=== PATIENT | female | born 1990 | race Caucasian/White ===

== ENCOUNTER 2016-12-29 09:58 | Inpatient (IN) | payer OTHER ==
[~2016-12-29] VITALS: Ht 165.1 cm; Wt 109.0 kg
[~2016-12-29 09:58] MED LIST: BUDE3CAP PO; MONOTAB PO; VEDO1INJ; ZOFR4TAB3 SL
[2017-01-06] MEDS ORDERED: MONOTAB PO (11:07)
[2017-01-06] MEDS ORDERED: VEDO1INJ IV (11:07)
[2017-01-06 11:10] VITALS: BP 140/86; PULSE 101; RESP 16; TEMP 99.3; O2SAT 100
[2017-01-06] MEDS ORDERED: ALVIMOPAN 12 MG CAPSULE ONE (11:22)
[2017-01-06] MEDS ORDERED: ALVIMOPAN 12 MG CAPSULE - On Call PO SCH (12:00)
[2017-01-06] MEDS ORDERED: SODIUM CHLORID 0.9% 500 ML IV PRN (12:00)
[2017-01-06] MEDS ORDERED: DEXT 5%-NACL 0.9% 1000 ML INJ 1,000 ML IV SCH (12:00)
[2017-01-06] MEDS ORDERED: LACTATED RINGER'S 1000 ML IV PRN (12:00)
[2017-01-06] MEDS ORDERED: POVIDONE IODINE 5% (ANTISEPSIS KIT) 4 APPLICATIONS EACH NARE PRN (12:00)
[2017-01-06] MEDS ORDERED: METOPROLOL TARTRATE 25 MG TAB PO PRN (12:00)
[2017-01-06] MEDS ORDERED: CHLORHEXIDINE GLUCONATE 2 % 1 PACK (2 CLOTHS) TOPICAL PRN (12:00)
[2017-01-06] MEDS ORDERED: INSULIN HUMAN REGULAR 1,000 UNITS/10 ML VIAL SQ PRN (12:00)
[2017-01-06] MEDS: ceFAZolin 1,000 MG/NS 100 ML IV SCH ×4 (12:50)
--- NOTE | 2017-01-06 12:50 | PD.HP.UP ---
H&P Update Note The Pre-Admit History and Physical Examination regarding the above named patient was reviewed (including, but not limited to, vital signs, heart, lungs, co-morbid conditions), and upon re-examination it is noted that: the patient's condition has not significantly changed since the last examination. Karlos Andersen MD Jan 06, 2017 12:50
[2017-01-06] MEDS ORDERED: ACETAMINOPHEN 1000 MG/100 ML VIAL IV ONE (12:51)
[2017-01-06] MEDS: METRONIDAZOLE 500 MG/100 ML ISONTONIC SOLN IV SCH ×2 (12:52)
[2017-01-06] MEDS ORDERED: MIDAZOLAM HCL 2 MG/2 ML VIAL ONE (12:54)
[2017-01-06] MEDS ORDERED: FAMOTIDINE 20 MG/2 ML VIAL ONE (12:54)
[2017-01-06] MEDS ORDERED: PROPOFOL 200 MG/20 ML AMP IV ONE (14:24)
[2017-01-06] MEDS ORDERED: LACTATED RINGER'S 1000 ML INJ 1,000 ML IV ONE (14:25)
[2017-01-06] MEDS ORDERED: NORMOSOL R INJ 3,000 ML IV ONE (14:25)
[2017-01-06] MEDS ORDERED: NEOSTIGMINE 3 MG/3 ML SYR IV ONE (14:25)
[2017-01-06] MEDS ORDERED: ONDANSETRON HCL 4 MG/2 ML VIAL IV PUSH ONE (14:25)
[2017-01-06] MEDS ORDERED: fentaNYL CITRATE 250 MCG/5 ML AMP ONE ×2 (14:50→15:26)
[2017-01-06] MEDS: D5-NS + KCL 20 MEQ INJ 1,000 ML IV SCH ×2 (15:10→20:43)
[2017-01-06] MEDS ORDERED: NALOXONE HCL 0.4 MG/ML AMP IV PRN ×2 (15:15)
[2017-01-06] MEDS ORDERED: Post-op Orders (for Pharmacy) MISC XX ONE (15:15)
[2017-01-06] MEDS ORDERED: POTASSIUM CHLOR 20 MEQ PREMIX 100 ML IV PRN (15:15)
[2017-01-06] MEDS ORDERED: ACETAMINOPHEN 325 MG TAB PO PRN (15:15)
[2017-01-06] MEDS ORDERED: KETOROLAC TROMETHAMINE 30 MG/ML (IVP) VIAL IVP PRN (15:15)
[2017-01-06] MEDS ORDERED: ENALAPRILAT 1.25 MG/ML VIAL IV PRN (15:15)
[2017-01-06] MEDS ORDERED: ENALAPRILAT 2.5 MG/2 ML VIAL IV PRN (15:15)
[2017-01-06] MEDS ORDERED: ONDANSETRON HCL 4 MG/2 ML VIAL IV PRN (15:15)
[2017-01-06] MEDS ORDERED: POTASSIUM CHLOR 40 MEQ PREMIX 100 ML IV PRN (15:15)
[2017-01-06] MEDS ORDERED: SODIUM CHLORIDE 0.9% FLUSH 5 ML FLUSH IVF PRN (15:15)
[2017-01-06] MEDS ORDERED: BENZOCAINE 6 MG/MENTHOL 10 MG LOZENGE BUCCAL PRN (15:15)
[2017-01-06] MEDS ORDERED: ACETAMINOPHEN/HYDROcodone 325 MG/5 MG TAB PO PRN ×2 (15:15)
[2017-01-06 16:16] LABS: AUTOMATED NEUTROPHIL # 17.1 TH/MM3 (1.8-7.7); BASOPHIL % 0.1 % (0.0-2.0); EOSINOPHIL % 0.1 % (0.0-4.0); HEMATOCRIT 34.7 % (35.0-46.0); HEMO FLAGS DIFF FINAL; LYMPH % 11.1 % (9.0-44.0); LYMPHOCYTE # 2.3 TH/MM3 (1.0-4.8); MEAN CELL VOLUME 75.9 FL (80.0-100.0); MEAN CORPUSCULAR HEMOGLOBIN 24.5 PG (27.0-34.0); MEAN CORPUSCULAR HGB CONC 32.3 % (32.0-36.0); NEUT % 83.7 % (16.0-70.0); PLATELET COUNT 309 TH/MM3 (150-450); RED BLOOD COUNT 4.58 MIL/MM3 (4.00-5.30); RED CELL DISTRIBUTION WIDTH 16.5 % (11.6-17.2); WHITE BLOOD COUNT 20.4 TH/MM3 (4.0-11.0)
[2017-01-06] MEDS ORDERED: *ONDANSETRON 4 MG VIAL PERIprocedural Use ONLY ONE (16:16)
[2017-01-06] MEDS ORDERED: DO NOT ADM ANY ANTICOAGULANT DRUGS PRN (17:00)
[2017-01-06] MEDS: HYDROmorphone HCL PCA 6 MG/30 ML IV SCH ×2 (17:32→18:47)
[2017-01-06 18:11] VITALS: PULSE 77
[2017-01-06 20:00] VITALS: BP 110/60; PULSE 108; PULSE 180; RESP 26; TEMP 98.7; O2SAT 99
[2017-01-06 20:15] VITALS: O2SAT 99
[2017-01-06] MEDS: METOCLOPRAMIDE HCL 10 MG/2 ML VIAL IVS SCH (20:44)
[2017-01-06] MEDS: SODIUM CHLORIDE 0.9% FLUSH 5 ML FLUSH IVF SCH (20:44)
[2017-01-06] MEDS: metroNIDAZOLE 500 MG INJ 100 ML IV SCH (20:44)
[2017-01-06] MEDS: PCA - TOTAL MG DILAUDID DELIVERED PER SHIFT OTHER SCH (21:26)
[2017-01-06 22:00] VITALS: PULSE 97
[2017-01-07] VITALS (11 sets, daily range): BP systolic 94–114; BP diastolic 53–76; PULSE 78–98; RESP 15–25; TEMP 98.5–98.8; O2SAT 95–99
[2017-01-07] MEDS: HYDROmorphone HCL PCA 6 MG/30 ML IV SCH ×3 (02:09→17:22)
[2017-01-07] MEDS: D5-NS + KCL 20 MEQ INJ 1,000 ML IV SCH ×3 (02:38→20:38)
[2017-01-07] MEDS: metroNIDAZOLE 500 MG INJ 100 ML IV SCH ×2 (04:19→14:11)
[2017-01-07 05:02] LABS: BASOPHIL % 0.1 % (0.0-2.0); HEMATOCRIT 34.1 % (35.0-46.0); HEMO FLAGS DIFF FINAL; LYMPH % 8.8 % (9.0-44.0); MEAN CELL VOLUME 77.4 FL (80.0-100.0); MEAN CORPUSCULAR HEMOGLOBIN 25.1 PG (27.0-34.0); MEAN CORPUSCULAR HGB CONC 32.4 % (32.0-36.0); NEUT % 84.1 % (16.0-70.0); PLATELET COUNT 227 TH/MM3 (150-450); RED BLOOD COUNT 4.41 MIL/MM3 (4.00-5.30); RED CELL DISTRIBUTION WIDTH 16.6 % (11.6-17.2); WHITE BLOOD COUNT 11.9 TH/MM3 (4.0-11.0)
[2017-01-07] MEDS: PCA - TOTAL MG DILAUDID DELIVERED PER SHIFT OTHER SCH ×3 (05:21→21:36)
[2017-01-07 05:29] LABS: BICARBONATE 25.6 MEQ/L (21.0-32.0); POTASSIUM 4.1 MEQ/L (3.5-5.1)
[2017-01-07] MEDS: METOCLOPRAMIDE HCL 10 MG/2 ML VIAL IVS SCH ×2 (08:44→20:38)
[2017-01-07] MEDS: PANTOPRAZOLE SOD 40 MG DELAYED RELEASE TAB PO SCH (08:45)
[2017-01-07] MEDS: PANTOPRAZOLE SODIUM 40 MG VIAL IVP SCH (09:00)
[2017-01-07] MEDS: SODIUM CHLORIDE 0.9% FLUSH 5 ML FLUSH IVF SCH ×2 (09:00→19:46)
[2017-01-07] MEDS ORDERED: ALVIMOPAN 12 MG CAPSULE - Post-op dosing PO SCH (09:00)
--- NOTE | 2017-01-07 19:08 | HHI.PR ---
Subjective Remarks C/R Surg pod#1 afebrile, VSS UO good Objective - Vital Signs Date Time Temp Pulse Resp B/P Pulse Ox O2 Delivery O2 Flow Rate FiO2 01/07/17 18:04 98 01/07/17 17:22 20 01/07/17 16:00 98.5 102/62 98 01/07/17 08:28 Nasal Cannula 2.00 Result Diagram: 01/07/17 0423 01/07/17 0423 Objective Remarks PE alert Abd - soft, flat, wound dry A/P Assessment and Plan Imp: stable post-op OOB decr IVF tx to floor Karlos Andersen MD Jan 07, 2017 19:08
[2017-01-07] MEDS: ALVIMOPAN 12 MG CAPSULE PO SCH (20:39)
[2017-01-08] VITALS (8 sets, daily range): BP systolic 117–130; BP diastolic 58–73; PULSE 89–118; RESP 16–22; TEMP 96.5–100.5; O2SAT 94–99
[2017-01-08] MEDS: HYDROmorphone HCL PCA 6 MG/30 ML IV SCH ×3 (02:25→20:54)
[2017-01-08] MEDS: PCA - TOTAL MG DILAUDID DELIVERED PER SHIFT OTHER SCH ×3 (05:52→22:00)
[2017-01-08 06:06] LABS: AUTOMATED NEUTROPHIL # 10.8 TH/MM3 (1.8-7.7); BASOPHIL % 0.1 % (0.0-2.0); HEMATOCRIT 31.9 % (35.0-46.0); HEMO FLAGS DIFF FINAL; LYMPH % 7.3 % (9.0-44.0); LYMPHOCYTE # 0.9 TH/MM3 (1.0-4.8); MEAN CELL VOLUME 77.8 FL (80.0-100.0); MEAN CORPUSCULAR HEMOGLOBIN 24.5 PG (27.0-34.0); MEAN CORPUSCULAR HGB CONC 31.5 % (32.0-36.0); MONO % 6.1 % (0.0-8.0); NEUT % 86.5 % (16.0-70.0); PLATELET COUNT 215 TH/MM3 (150-450); RED CELL DISTRIBUTION WIDTH 16.6 % (11.6-17.2); WHITE BLOOD COUNT 12.5 TH/MM3 (4.0-11.0)
[2017-01-08] MEDS: D5-NS + KCL 20 MEQ INJ 1,000 ML IV SCH ×3 (06:13→20:53)
[2017-01-08 06:35] LABS: BICARBONATE 24.5 MEQ/L (21.0-32.0); POTASSIUM 3.9 MEQ/L (3.5-5.1)
[2017-01-08] MEDS: ALVIMOPAN 12 MG CAPSULE PO SCH ×2 (08:15→20:55)
[2017-01-08] MEDS: PANTOPRAZOLE SOD 40 MG DELAYED RELEASE TAB PO SCH (08:15)
[2017-01-08] MEDS: METOCLOPRAMIDE HCL 10 MG/2 ML VIAL IVS SCH ×2 (08:15→20:55)
[2017-01-08] MEDS: PANTOPRAZOLE SODIUM 40 MG VIAL IVP SCH (08:16)
[2017-01-08] MEDS: SODIUM CHLORIDE 0.9% FLUSH 5 ML FLUSH IVF SCH ×2 (08:16→20:55)
--- NOTE | 2017-01-08 16:57 | HHI.PR ---
Subjective Remarks C/R Surg pod# 2 afebrile, VSS UO good - wanda dc'd Objective - Vital Signs Date Time Temp Pulse Resp B/P Pulse Ox O2 Delivery O2 Flow Rate FiO2 01/08/17 16:11 98.6 90 18 120/67 99 01/07/17 19:00 Room Air 01/07/17 08:28 2.00 Result Diagram: 01/08/17 0446 01/08/17 0446 Objective Remarks PE alert Abd - soft, flat, wound dry +BM A/P Assessment and Plan Imp: OOB decr IVF adv diet change to PO Karlos Nino MD Jan 08, 2017 16:57
[2017-01-08] MEDS ORDERED: HYDR-3516 PO (17:00)
[2017-01-09] VITALS: BP 125/68; PULSE 113; RESP 20; TEMP 100.2; O2SAT 97
[2017-01-09] MEDS: HYDROmorphone HCL PCA 6 MG/30 ML IV SCH (03:49)
[2017-01-09 04:00] VITALS: BP 122/72; PULSE 103; RESP 20; TEMP 97.3; O2SAT 97
[2017-01-09] MEDS: PCA - TOTAL MG DILAUDID DELIVERED PER SHIFT OTHER SCH ×2 (06:00→14:00)
[2017-01-09 08:00] VITALS: BP 116/64; PULSE 85; RESP 20; TEMP 98.7; O2SAT 97
[2017-01-09 08:20] VITALS: RESP 17
[2017-01-09] MEDS: ALVIMOPAN 12 MG CAPSULE PO SCH (08:34)
[2017-01-09] MEDS: METOCLOPRAMIDE HCL 10 MG/2 ML VIAL IVS SCH (08:35)
[2017-01-09] MEDS: PANTOPRAZOLE SOD 40 MG DELAYED RELEASE TAB PO SCH (08:35)
[2017-01-09] MEDS: PANTOPRAZOLE SODIUM 40 MG VIAL IVP SCH (08:35)
[2017-01-09] MEDS: SODIUM CHLORIDE 0.9% FLUSH 5 ML FLUSH IVF SCH (08:35)
[2017-01-09 14:00] VITALS: RESP 17
--- NOTE | 2017-01-11 08:50 | MP ---
cc: BRII GARNER M.D. DATE OF SURGERY: 01/06/2017 PREOPERATIVE DIAGNOSIS: Crohn's disease of the terminal ileum, possible ileal sigmoid fistula. POSTOPERATIVE DIAGNOSIS Crohn's disease of the terminal ileum with adhesions from the terminal ileum to the sigmoid mesentery. PROCEDURE: Exploratory laparotomy with lysis of adhesions and right hemicolectomy. SURGEON: Brii Garner MD. WELFARE SERVICE AIDE: Danielito Palacio MD. DESCRIPTION OF THE PROCEDURE IN DETAIL: The patient was placed in the supine position. After adequate general anesthesia, her abdomen was prepped with Betadine solution and draped in the usual sterile fashion. With Dr. Palacio's assistance, the abdomen was opened through a midline incision. Upon entering the abdomen, exploration revealed an inflammatory mass in the midabdomen involving the terminal ileum, cecum and the sigmoid loop. This was and appeared to be adherent more to the sigmoid mesentery than to the sigmoid lumen and sigmoid colon. No fistula was identified. The remainder of the exploration revealed the rest of the colon to be pretty normal. The terminal ileum was definitely involved with Crohn's for of at least 8 to 12 inches. The proximal bowel was run back to the ligament Treitz and felt to be pretty unremarkable. No other signs of Crohn's disease was noted. Liver and gallbladder were unremarkable. The stomach and duodenum were normal. Uterus and ovaries were appropriate for the patient's age. First the right colon was mobilized medially by dividing along the white line of Toldt. The right ureter was identified and carefully preserved. Dissection proceeded up the right gutter freeing the right colon off the retroperitoneum, taking down the hepatic flexure and mobilizing the gastrocolic omentum off the transverse colon. After full mobilization, the bowel was divided in the ascending colon using the WEI stapling device and what appeared to be normal colon and in the terminal ileum proximal to the ileal disease at what appeared to be again with the WEI stapling device. The intervening mesentery was taken between Velma's obtaining hemostasis with Vicryl ties. Bowel continuity was then restored by firing the WEI stapler across the antimesenteric ends of the bowel and closing the enterotomy with a TA 60 stapler. The mesenteric defect was closed with a running Vicryl suture and a 3-0 Vicryl crotch suture was placed as well. The abdomen was then irrigated copiously with normal saline. Adequate hemostasis was achieved. The transverse midline incision was closed anatomically using a running #1 PDS suture to reapproximate the midline fascia. The subcutaneous tissue was irrigated copiously and the subcu tissue closed in several layers with running Vicryl sutures and then a running Vicryl suture for the skin. The wound area was washed with normal saline and dried. Sterile dressing of Telfa and gauze applied. The patient tolerated the procedure quite well and was brought to the recovery room in stable condition. Sponge and needle counts were correct at the end of the procedure. MD HEMALATHA Graves/TOSHIA /11:47 PM /8:54 AM
== END 2017-01-09 14:16 | disposition home or self-care (01) | DRG 330 ==
LOC: HSDI 01-06 10:28 → N03B 01-06 17:50 → N07A 01-07 21:20
PROVIDERS: ADMIT Colon & Rectal Surgery; ATTEND Colon & Rectal Surgery
PROC: 0DNW0ZZ Release Peritoneum, Open Approach (ICD-10-PCS; 2017-01-06)
PROC: 0DTF0ZZ Resection of Right Large Intestine, Open Approach (ICD-10-PCS; principal; 2017-01-06 12:58)
DX: K50.00 Crohn's disease of small intestine without complications (principal); Z68.41 Body mass index [BMI] 40.0-44.9, adult; K66.0 Peritoneal adhesions (postprocedural) (postinfection); E66.9 Obesity, unspecified
CPT/HCPCS: 80048; 85025; 86850; 86900; 86901; 87641; 88307; 94150; J0131; J0690; J1170; J1885; J2250; J2405; J2710; J2765; J3010; J3480; J7042; J7120